=== PATIENT | female | born 1980 | race Two or more races ===

== ENCOUNTER 2024-11-26 22:49 | Emergency (ER) | payer OTHER ==
[~2024-11-26] VITALS: Ht 157.5 cm; Wt 117.4 kg
[2024-11-27] MEDS ORDERED: CEPH500C PO (01:34)
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
[2024-11-27 01:43] VITALS: BP 162/86; PULSE 94; RESP 18; TEMP 98.2; O2SAT 96
== END 2024-11-27 01:45 | disposition home or self-care (01) ==
LOC: ER 22:49
DX: T22.231A Burn of second degree of right upper arm, initial encounter (principal); T23.171A Burn of first degree of right wrist, initial encounter; T20.10XA Burn of first degree of head, face, and neck, unspecified site, initial encounter; T21.11XA Burn of first degree of chest wall, initial encounter; X10.2XXA Contact with fats and cooking oils, initial encounter; Y93.G3 Activity, cooking and baking; Y92.89 Other specified places as the place of occurrence of the external cause; Y99.8 Other external cause status